=== PATIENT | female | born 1955 | race Caucasian/White ===

== ENCOUNTER → 2016-09-04 | Outpatient (CLI) | payer BC ==
--- NOTE | 2016-09-05 07:51 | BD ---
EXAMINATION TYPE: MG DEXA axial skeleton. DATE OF EXAM: 09/04/2016 COMPARISON: NONE CLINICAL HISTORY: Disorder of bone and cartilage per order. Height: 64 Weight: 127.0 FRAX RISK QUESTIONS: Alcohol (3 or more units per day): no Family History (Parent hip fracture): no Glucocorticoids (More than 3mos): no (Ex: prednisone, prednisolone, methylprednisolone, dexamethasone, and hydrocortisone). History of Fracture in Adulthood: yes Secondary Osteoporosis: 1. Type 1 Diabetes: yes 2. Hyperthyroidism: no 3. Menopause before 45: no 4. Malnutrition: no 5. Chronic liver disease: no Rheumatoid Arthritis: no Current Tobacco Use: no RISK FACTORS HISTORY OF: Hip Fracture (Right/Left): no Spine Fracture: no History of Wrist Fracture: no Surgery to Spine/Hip(right/left)/Wrist (right/left): no Family History of Osteoporosis: no Active: yes Diet low in dairy products/other sources of calcium: no Postmenopausal woman: age 49 Lost more than 2 inches in height since high school: no Frequent falls: no Adrenal Insufficiency: no MEDICATIONS: insulin, metoprolol, Lotensin, vit d Additional History: EXAM MEASUREMENTS: Bone mineral densitometry was performed using the Tipbit System. Bone mineral density as measured about the Lumbar spine is: ----- L1-L4(G/cm2): 1.007 T Score Values are as follows: ----- L2: -1.7 ----- L3: -1.2 ----- L4: -1.4 ----- L1-L4: -1.4 Bone mineral density baseline here Bone mineral density about the R hip (g/cm2): 0.815 Bone mineral density about the L hip (g/cm2): 0.827 T Score values are as follows: -----R Neck: -1.6 -----L Neck: -1.5 -----R Total: -1.0 -----L Total: -0.8 Bone mineral density baseline here IMPRESSION: Osteopenia (T Score between -2.5 and -1 as noted by T score values in the low back and both hips. The re is slightly increased risk of fracture and the patient may be considered for treatment. Re-Screen 2-5 years. NOTE: T-SCORE=SD OF THE YOUNG ADULT MEAN.
== END | disposition home or self-care (01) ==
LOC: RADBDWWP 14:54
PROVIDERS: ATTEND Pediatrics Adolescent Medicine
DX: M85.80 Other specified disorders of bone density and structure, unspecified site (principal)
CPT/HCPCS: 77080

== ENCOUNTER → 2016-09-04 | Outpatient (CLI) | payer BC ==
--- NOTE | 2016-09-06 08:13 | MM ---
Reason for exam: screening (asymptomatic). Last mammogram was performed 3 years and 1 month ago. History: Patient is postmenopausal. Physical Findings: A clinical breast exam by your physician is recommended on an annual basis and results should be correlated with mammographic findings. MG Screening Mammo w CAD Bilateral CC and MLO view(s) were taken. Prior study comparison: August 03, 2013, bilateral MG screening mammo w CAD. November 12, 2010, bilateral digital screening mammo w/CAD. The breast tissue is heterogeneously dense. This may lower the sensitivity of mammography. No significant changes when compared with prior studies. ASSESSMENT: Negative, BI-RAD 1 RECOMMENDATION: Routine screening mammogram of both breasts in 1 year.
== END | disposition home or self-care (01) ==
LOC: RADMAMWWP 14:51
PROVIDERS: ATTEND Family Medicine
DX: Z12.31 Encounter for screening mammogram for malignant neoplasm of breast (principal)

== ENCOUNTER → 2019-12-08 | Outpatient (CLI) | payer BC, MEDICARE ==
--- NOTE | 2019-12-09 10:18 | MM ---
Reason for exam: screening (asymptomatic). Last mammogram was performed 3 years and 3 months ago. History: Patient is postmenopausal. Physical Findings: A clinical breast exam by your physician is recommended on an annual basis and results should be correlated with mammographic findings. MG 3D Screening Mammo W/Cad Bilateral CC and MLO view(s) were taken. Prior study comparison: September 04, 2016, bilateral MG screening mammo w CAD. August 03, 2013, bilateral MG screening mammo w CAD. The breast tissue is heterogeneously dense. This may lower the sensitivity of mammography. Stable benign calcifications. There is no discrete abnormality. No significant changes when compared with prior studies. ASSESSMENT: Benign, BI-RAD 2 RECOMMENDATION: Routine screening mammogram of both breasts in 1 year.
== END | disposition home or self-care (01) ==
LOC: RADMAMWWP 16:09
PROVIDERS: ATTEND Family Medicine
DX: Z12.31 Encounter for screening mammogram for malignant neoplasm of breast (principal)
CPT/HCPCS: 77063; 77067

== ENCOUNTER → 2022-01-16 | Outpatient (CLI) | payer MEDICARE ==
[2022-01-16 10:06] VITALS: BP 140/89; PULSE 78; RESP 17; TEMP 98.3
--- NOTE | 2022-01-16 13:12 | P.HPOB ---
History of Present Illness H&P Date: 01/16/22 Chief Complaint: The patient is here for her routine gynecologic exam and ma mmogram. This is a 66-year-old with an LMP of 2004. The patient is here to establish with this office. It has been about 5 years since her last pelvic exam. She has a history of vaginal prolapse for many years, and she states it has gradually gotten worse. She does notice a small bulge from the vaginal opening. She states it sometimes can feel irritated. She also notices that her urinary stream has been slower than in the past. She denies any postmenopausal bleeding. Review of Systems The patient's weight has been stable over the last year. She denies respiratory, cardiac, or G.I. problems. Past Medical History Past Medical History: Diabetes Mellitus, Hypertension Additional Past Medical History / Comment(s): Type 1 diabetes since age 41. 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 History of Any Multi-Drug Resistant Organisms: None Reported Past Surgical History: No Surgical Hx Reported Additional Past Surgical History / Comment(s): Colonoscopy 2019(next after 10 years). Past Anesthesia/Blood Transfusion Reactions: No Reported Reaction Past Psychological History: No Psychological Hx Reported (She denies any current depression.) Smoking Status: Former smoker Past Alcohol Use History: Occasional (6 per week) Additional Past Alcohol Use History / Comment(s): Quit smoking in 2001. 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 - Past Family History Mother Family Medical History: Cancer Additional Family Medical History / Comment(s): Lung cancer. Maternal aunt had colon cancer and another maternal aunt had breast cancer. Father History Unknown: Yes Family Medical History: Blood Disorder Additional Family Medical History / Comment(s): Alcoholic. of pneumonia. Medications and Allergies Home Medications Medication Instructions Recorded Confirmed Type Benazepril/Hydrochlorothiazide 1 tablet PO DAILY 01/16/22 01/16/22 History [Benazepril-Hctz 20-12.5 mg Tab] Insulin Aspart [NovoLOG] 10 unit INJ DIRECTED 01/16/22 01/16/22 History Insulin Degludec [Tresiba 16 units INJ AC-BRKFST 01/16/22 01/16/22 History Flextouch U-100 Pen] Metoprolol Succinate (ER) [Toprol 25 mg PO DAILY 01/16/22 01/16/22 History XL] amLODIPine [Norvasc] 2.5 mg PO HS 01/16/22 01/16/22 History amLODIPine [Norvasc] 5 mg PO DAILY 01/16/22 01/16/22 History Allergies Allergy/AdvReac Type Severity Reaction Status Date / Time No Known Allergies Allergy Unverified 01/16/22 09:54 Exam Vital Signs Temp Pulse Resp BP Pulse Ox 01/16/22 10:01 98.3 F 78 17 140/89 99 Intake and Output 01/15/22 01/16/22 01/16/22 22:59 06:59 14:59 Other: Weight 57.606 kg Height 5 feet 4 inches, weight 127 pounds, BMI 21.8. This is a well-developed well-nourished white female who is alert and oriented times 3 in no acute distress. HEENT: Within normal limits. NECK: Supple without mass or thyromegaly. CHEST AND LUNGS: Clear to auscultation. HEART: Regular rate and rhythm. BREASTS: Are without mass or discharge. AXILLARY EXAM: Negative for adenopathy. BACK: Negative for CVA tenderness. ABDOMEN: Soft, nontender, without palpable masses. PELVIC EXAM: Normal external genitalia with mild atrophy. Cervix appears normal with mild atrophy. Vagina reveals a grade 2-3 cystocele with mild mucosal thickening over the cystocele. There is no ulceration or gross lesions in the mucosa. The cystocele increases to a grade 3 cystocele with Valsalva. No urinary leakage is demonstrated. There is no unusual discharge. The uterus is midposition, nongravid size and nontender. There is a grade 2 uterine prolapse. There is also a grade 1-2 rectocele. There are no palpable adnexal masses or tenderness. RECTAL EXAM: Rectovaginal exam is negative for mass or tenderness and is negative for occult blood. EXTREMITIES: Nontender. Additional studies: Bone density test done on 09/04/2016 showed osteopenia. Her last mammogram was done on 12/08/2019 and was benign. IMPRESSION: 1. 66-year-old menopausal female with grade 3 cystocele, grade 2 uterine prolapse, and grade 1-2 rectocele. This is mildly symptomatic. 2. History of osteopenia. PLAN: 1. Pap smear was performed. I will also try to obtain her Pap smears from [facility] [employer] from the last 12 years. After reviewing the Pap smears we will determine if Pap smears can be discontinued. 2. Self breast awareness was discussed with the patient. We have also discussed symptoms associated with inflammatory breast cancer. 3. Screening mammogram was done today. 4. We have had a long discussion regarding her vaginal prolapse. We have discussed options including conservative management, pessary use, and surgical correction. She is considering either pessary use or surgical correction. Information on pelvic support problems as well as hysterectomy will be mailed to the patient. She will let me know if she would like to proceed with pessary fitting or surgical correction. If this is the case she will will be referred for this. 5. Osteoporosis prevention was discussed. I have stressed the importance of adequate calcium, vitamin D and regular exercise. Recommended amounts of calcium and vitamin D were also discussed. I have recommended bone density testing since her last one was 5 years ago. The order slip will be mailed to the patient. 6. She has completed her Covid vaccination series and has received 1 booster. 7. She was advised to return in one year for her annual well woman exam and as needed.
--- NOTE | 2022-01-17 07:44 | MM ---
Reason for Exam: Screening (asymptomatic). Last mammogram was performed 2 year(s) and 1 month(s) ago. Patient History: Menarche at age 13. First Full-Term at age 20. Postmenopausal. Patient has history of breast feeding. Maternal aunt had breast cancer, age 78. Risk Values: Gabriela 5 year model risk: 1.4%. NCI Lifetime model risk: 4.8%. Prior Study Comparison: 08/03/2013 Bilateral Screening Mammogram, [facility]. 09/04/2016 Bilateral Screening Mammogram, [facility]. 12/08/2019 Bilateral Screening Mammogram, [facility]. Tissue Density: The breast tissue is heterogeneously dense. This may lower the sensitivity of mammography. Findings: Analyzed By CAD. There are 2 benign-appearing round calcifications in the right breast redemonstrated. Benign-appearing bilateral axillary lymph nodes are again seen. There is no suspicious group of microcalcifications or new suspicious mass in either breast. Overall Assessment: Benign, BI-RAD 2 Management: Screening Mammogram of both breasts in 1 year. A clinical breast exam by your physician is recommended on an annual basis and results should be correlated with mammographic findings. Electronically signed and approved by: Trung Nix M.D.
--- NOTE | 2022-01-17 07:44 | MM ---
Reason for Exam: Screening (asymptomatic). Last mammogram was performed 2 year(s) and 1 month(s) ago. Patient History: Menarche at age 13. First Full-Term at age 20. Postmenopausal. Patient has history of breast feeding. Maternal aunt had breast cancer, age 78. Risk Values: Gabriela 5 year model risk: 1.4%. NCI Lifetime model risk: 4.8%. Prior Study Comparison: 08/03/2013 Bilateral Screening Mammogram, [facility]. 09/04/2016 Bilateral Screening Mammogram, [facility]. 12/08/2019 Bilateral Screening Mammogram, [facility]. Tissue Density: The breast tissue is heterogeneously dense. This may lower the sensitivity of mammography. Findings: Analyzed By CAD. There are 2 benign-appearing round calcifications in the right breast redemonstrated. Benign-appearing bilateral axillary lymph nodes are again seen. There is no suspicious group of microcalcifications or new suspicious mass in either breast. Overall Assessment: Benign, BI-RAD 2 Management: Screening Mammogram of both breasts in 1 year. A clinical breast exam by your physician is recommended on an annual basis and results should be correlated with mammographic findings. Electronically signed and approved by: Trung Nix M.D.
== END | disposition home or self-care (01) ==
LOC: WWCWWP 09:48
PROVIDERS: ATTEND Obstetrics & Gynecology
DX: Z01.419 Encounter for gynecological examination (general) (routine) without abnormal findings (principal); Z12.31 Encounter for screening mammogram for malignant neoplasm of breast
CPT/HCPCS: 77063; 77067

== ENCOUNTER 2023-02-12 11:47 | Emergency (ER) | payer MEDICARE ==
[2023-02-12] MEDS ORDERED: KETOROLAC 15 MG/ML 1 ML VIAL IVP STA (12:39)
[2023-02-12] MEDS ORDERED: ONDANSETRON 4 MG/2 ML VIAL IVP STA (12:39)
[2023-02-12] MEDS ORDERED: MORPHINE SULFATE 2 MG/ML SYRINGE IVP STA (12:41)
--- NOTE | 2023-02-12 12:55 | ED ---
Abdominal Pain HPI - General Chief Complaint: Abdominal Pain Stated Complaint: Abd Pain Time Seen by Provider: 02/12/23 12:32 Source: patient Mode of arrival: ambulatory Limitations: no limitations - History of Present Illness Initial Comments: This 59-year-old female presents with complaint of some left flank and left- sided abdominal pain. She states that it came on at approximately 5:30 this morning. She states that it is fairly severe at times. It is associated with nausea and one episode of vomiting. There's been no fevers or chills, diarrhea, or constipation. She denies any urinary symptomatology. She denies any history of kidney stones. She denies any history of previous similar incidents. She otherwise is fairly healthy other than type 1 diabetes which has been controlled. No other complaints or modifying factors. - Related Data Home Medications Medication Instructions Recorded Confirmed Benazepril/Hydrochlorothiazide 1 tablet PO DAILY 01/16/22 01/16/22 [Benazepril-Hctz 20-12.5 mg Tab] Insulin Aspart [NovoLOG] 10 unit INJ DIRECTED 01/16/22 01/16/22 Insulin Degludec [Tresiba 16 units INJ AC-BRKFST 01/16/22 01/16/22 Flextouch U-100 Pen] Metoprolol Succinate (ER) [Toprol 25 mg PO DAILY 01/16/22 01/16/22 XL] amLODIPine [Norvasc] 2.5 mg PO HS 01/16/22 01/16/22 amLODIPine [Norvasc] 5 mg PO DAILY 01/16/22 01/16/22 Previous Rx's Medication Instructions Recorded Ondansetron Odt [Zofran Odt] 8 mg PO Q8HR PRN #15 tab 02/12/23 traMADol HCl [Ultram] 50 - 100 mg PO Q6H PRN #15 tab 02/12/23 Allergies Allergy/AdvReac Type Severity Reaction Status Date / Time No Known Allergies Allergy Verified 02/12/23 12:08 Review of Systems ROS Statement: Those systems with pertinent positive or pertinent negative responses have been documented in the HPI. ROS Other: All systems not noted in ROS Statement are negative. Past Medical History Past Medical History: Diabetes Mellitus, Hypertension Additional Past Medical History / Comment(s): Type 1 diabetes since age 41. 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 History of Any Multi-Drug Resistant Organisms: None Reported Past Surgical History: No Surgical Hx Reported Additional Past Surgical History / Comment(s): Colonoscopy 2019(next after 10 years). Past Anesthesia/Blood Transfusion Reactions: No Reported Reaction Past Psychological History: No Psychological Hx Reported Smoking Status: Former smoker Past Alcohol Use History: Occasional Past Drug Use History: None Reported - Past Family History Mother Family Medical History: Cancer Additional Family Medical History / Comment(s): Lung cancer. Maternal aunt had colon cancer and another maternal aunt had breast cancer. Father History Unknown: Yes Family Medical History: Blood Disorder Additional Family Medical History / Comment(s): Alcoholic. of pneumonia. General Exam - General Exam Comments Initial Comments: GENERAL: The patient is well nourished and well hydrated. VITAL SIGNS: Heart rate, blood pressure, respiratory rate reviewed as recorded in nurse's notes. EYES: Pupils are round and reactive. Extraocular movements are intact. No conjunctival / lid redness or swelling. ENT: No external evidence of injury, swelling, or ecchymosis. Airway is patent. Throat is clear. NECK: Nontender. No swelling or evidence of injury. No subcutaneous emphysema. Trachea is midline. No thyroid mass. HEART: Regular rate and rhythm. Good peripheral pulses. LUNGS/CHEST: Breath sounds clear and equal bilaterally. No rales, rhonchi, or wheezes. No ecchymosis, subcutaneous emphysema, or tenderness. ABDOMEN: Abdomen soft with mild tenderness noted more into the left mid to upper abdomen and flank region. No palpable masses or organomegaly. No peritoneal signs. No abdominal wall swelling or ecchymosis. EXTREMITIES: No extremity tenderness. Normal muscle tone and function. No thoracolumbar tenderness. NEUROLOGIC: Sensation is grossly intact. Cranial nerve exam reveals face is symmetrical, tongue is midline, speech is clear. SKIN: No abrasions or ecchymosis is noted. No induration or masses noted. PSYCHIATRIC: Alert and oriented. Appropriate behavior and judgment. Limitations: no limitations Course Vital Signs 02/12/23 02/12/23 02/12/23 12:06 13:00 15:42 Temperature 98 F 98.2 F 98.2 F Pulse Rate 70 72 71 Respiratory 18 20 21 Rate Blood Pressure 179/82 177/78 176/79 O2 Sat by Pulse 99 100 99 Oximetry Medical Decision Making - Medical Decision Making The patient was seen and examined. All diagnostics are reviewed. IV is established and she received Zofran and Toradol intravenously. The patient refuses any morphine. She later is given Ultram orally. The urinalysis did not show any evidence of infection or abnormalities. The laboratory just showed a mild hyponatremia and mild hypochloremia. The computed tomography scan of the abdomen and pelvis does show some left nephrolithiasis but there is no evidence of ureterolithiasis. The exact cause of her symptomatology is not definitively determined. The possibility of a small stone or recently passed stone certainly is plausible as her symptoms seem consistent with this. Nevertheless, it is felt as though she is stable for discharge home. Close follow-up with primary care is recommended. Return parameters are discussed. She will be discharged on Ultram as well as Zofran. Was pt. sent in by a medical professional or institution (, LUC, EMBOSSED OR IMPRESSED LETTERING PAINTER, urgent care, hospital, or assisted...) When possible be specific @ -No Did you speak to anyone other than the patient for history (EMS, parent, family, police, friend...)? What history was obtained from this source @ -No Did you review nursing and triage notes (agree or disagree)? Why? @ -I reviewed and agree with nursing and triage notes Were old charts reviewed (outside hosp., previous admission, EMS record, old EKG, old radiological studies, urgent care reports/EKG's, assisted records)? Report findings @ -No old charts were reviewed Differential Diagnosis (chest pain, altered mental status, abdominal pain women, abdominal pain men, vaginal bleeding, weakness, fever, dyspnea, syncope, headache, dizziness, GI bleed, back pain, seizure, CVA, palpatations, mental health, musculoskeletal)? @ -Ureterolithiasis, pyelonephritis, diverticulitis, musculoskeletal pain. EKG interpreted by me (3pts min.). @ -None X-rays interpreted by me (1pt min.). @ -None done CT interpreted by me (1pt min.). @ -As above. U/S interpreted by me (1pt. min.). @ -None done What testing was considered but not performed or refused? (CT, X-rays, U/S, labs)? Why? @ -None What meds were considered but not given or refused? Why? @ -Morphine was considered but patient refused as she's never had morphine before and does not want to try it. Did you discuss the management of the patient with other professionals (professionals i.e. , PA, EMBOSSED OR IMPRESSED LETTERING PAINTER, lab, RT, psych nurse, director of social services, janitorial tech, teacher, tank officer, insurance case manager)? Give summary @ -No Was smoking cessation discussed for >3mins.? @ -No Was critical care preformed (if so, how long)? @ -No Were there social determinants of health that impacted care today? How? (Homelessness, low income, unemployed, alcoholism, drug addiction, transportation, low edu. Level, literacy, decrease access to med. care, [facility], rehab)? @ -No Was there de-escalation of care discussed even if they declined (Discuss DNR or withdrawal of care, Hospice)? DNR status @ -No What co-morbidities impacted this encounter? (DM, HTN, Smoking, COPD, CAD, Cancer, CVA, ARF, Chemo, Hep., AIDS, mental health diagnosis, sleep apnea, morbid obesity)? @ -Diabetes Was patient admitted / discharged? Hospital course, mention meds given and route, prescriptions, significant lab abnormalities, going to OR and other pertinent info. @ -Patient was discharged home Undiagnosed new problem with uncertain prognosis? @ -No Drug Therapy requiring intensive monitoring for toxicity (Heparin, Nitro, Insulin, Cardizem)? @ -No Were any procedures done? @ -No Diagnosis/symptom? @ -Left flank and abdominal pain possibly secondary to recently passed ureterolithiasis. Acute, or Chronic, or Acute on Chronic? @ -Acute Uncomplicated (without systemic symptoms) or Complicated (systemic symptoms)? @ -default Side effects of treatment? @ -No Exacerbation, Progression, or Severe Exacerbation? @ -No Poses a threat to life or bodily function? How? (Chest pain, [place], [place], pneumonia, PE, COPD, DKA, ARF, appy, cholecystitis, CVA, Diverticulitis, Homicidal, Suicidal, threat to staff... and all critical care pts) @ -No - Lab Data Result diagrams: 02/12/23 12:59 02/12/23 12:59 Lab Results 02/12/23 02/12/23 02/12/23 Range/Units 12:36 12:59 12:59 WBC 8.1 (3.8-10.6) k/uL RBC 4.20 (3.80-5.40) m/uL Hgb 13.3 (11.4-16.0) gm/dL Hct 39.3 (34.0-46.0) % MCV 93.6 (80.0-100.0) fL MCH 31.8 (25.0-35.0) pg MCHC 33.9 (31.0-37.0) g/dL RDW 13.3 (11.5-15.5) % Plt Count 292 (150-450) k/uL MPV 7.6 Neutrophils % 87 % Lymphocytes % 9 % Monocytes % 2 % Eosinophils % 1 % Basophils % 0 % Neutrophils # 7.1 (1.3-7.7) k/uL Lymphocytes # 0.7 L (1.0-4.8) k/uL Monocytes # 0.2 (0-1.0) k/uL Eosinophils # 0.0 (0-0.7) k/uL Basophils # 0.0 (0-0.2) k/uL Sodium 132 L (137-145) mmol/L Potassium 3.7 (3.5-5.1) mmol/L Chloride 95 L (98-107) mmol/L Carbon Dioxide 24 (22-30) mmol/L Anion Gap 13 mmol/L BUN 12 (7-17) mg/dL Creatinine 0.37 L (0.52-1.04) mg/dL Est GFR (CKD-EPI)AfAm >90 (>60 ml/min/1.73 sqM) Est GFR (CKD-EPI)NonAf >90 (>60 ml/min/1.73 sqM) Glucose 146 H (74-99) mg/dL Calcium 10.1 (8.4-10.2) mg/dL Total Bilirubin 0.7 (0.2-1.3) mg/dL AST 41 H (14-36) U/L ALT 28 (4-34) U/L Alkaline Phosphatase 74 (38-126) U/L Total Protein 7.9 (6.3-8.2) g/dL Albumin 4.9 (3.5-5.0) g/dL Lipase 48 (23-300) U/L Urine Color Colorless Urine Appearance Clear (Clear) Urine pH 7.0 (5.0-8.0) Ur Specific [place] 1.010 (1.001-1.035) Urine Protein Negative (Negative) Urine Glucose (UA) Negative (Negative) Urine Ketones 1+ H (Negative) Urine Blood Negative (Negative) Urine Nitrite Negative (Negative) Urine Bilirubin Negative (Negative) Urine Urobilinogen <2.0 (<2.0) mg/dL Ur Leukocyte Esterase Negative (Negative) Disposition Clinical Impression: Left flank pain, Nausea and vomiting, Abdominal pain, Hypertension, Hyponatremia Disposition: HOME SELF-CARE Condition: Good Instructions (If sedation given, give patient instructions): Flank Pain (ED) Prescriptions: traMADol HCl [Ultram] 50 - 100 mg PO Q6H PRN #15 tab PRN Reason: Pain Ondansetron Odt [Zofran Odt] 8 mg PO Q8HR PRN #15 tab PRN Reason: Nausea Is patient prescribed a controlled substance at d/c from ED?: Yes When asked, does pt state using other controlled substances?: No If prescribed controlled substance>3 days was MAPS reviewed?: Prescribed <3 Days Referrals: Garrett Mireles MD [Primary Care Provider] - 1-2 days Time of Disposition: 15:14
--- NOTE | 2023-02-12 13:04 | XR ---
EXAMINATION TYPE: XR KUB DATE OF EXAM: 02/12/2023 Comparison: None Clinical History: 67 year-old female abdominal pain Findings: Lung bases are clear. No evidence for free intraperitoneal air. No dilated small bowel or air-fluid levels. Minimal stool in the right side of the abdomen. 5 mm calcification left upper mid abdomen is nonspecific. Impression: No evidence for free air or bowel obstruction. 5 mm calcification on the left is nonspecific, possibl e nonobstructive left renal calculus.
[2023-02-12 13:09] LABS: Appearance,Urine Clear (Clear); Bilirubin,Urine Negative (Negative); Blood,Urine Negative (Negative); Color,Urine Colorless; Glucose,Urine (UA) Negative (Negative); Ketones,Urine 1+ (Negative); Leukocyte Esterase,Urine Negative (Negative); Nitrite,Urine Negative (Negative); Protein,Urine Negative (Negative); Urobilinogen,Urine <2.0 mg/dL (<2.0)
[2023-02-12 13:29] LABS: Basophils % (A) 0 %; Eosinophils % (A) 1 %; HCT 39.3 % (34.0-46.0); HGB 13.3 gm/dL (11.4-16.0); Lymphocytes # (A) 0.7 k/uL (1.0-4.8); Lymphocytes % (A) 9 %; MCH 31.8 pg (25.0-35.0); MCHC 33.9 g/dL (31.0-37.0); MCV 93.6 fL (80.0-100.0); Mean Platelet Volume 7.6; Monocytes # (A) 0.2 k/uL (0-1.0); Monocytes % (A) 2 %; Neutrophils # (A) 7.1 k/uL (1.3-7.7); Neutrophils % (A) 87 %; Platelet Count 292 k/uL (150-450); RDW 13.3 % (11.5-15.5); WBC 8.1 k/uL (3.8-10.6)
[2023-02-12 13:37] LABS: ALT 28 U/L (4-34); African American GFR (CKD) >90 (>60 ml/min/1.73 sqM); Albumin 4.9 g/dL (3.5-5.0); Anion Gap 13 mmol/L; Blood Urea Nitrogen 12 mg/dL (7-17); Calcium 10.1 mg/dL (8.4-10.2); Carbon Dioxide 24 mmol/L (22-30); Chloride 95 mmol/L (98-107); Glucose 146 mg/dL (74-99); Lipase 48 U/L (23-300); Non-African American GFR(CKD) >90 (>60 ml/min/1.73 sqM); Sodium 132 mmol/L (137-145); Total Bilirubin 0.7 mg/dL (0.2-1.3); Total Protein 7.9 g/dL (6.3-8.2)
[2023-02-12 13:40] LABS: AST 41 U/L (14-36); Alkaline Phosphatase 74 U/L (38-126); Potassium 3.7 mmol/L (3.5-5.1)
[2023-02-12 13:48] VITALS: TEMP 98.2
--- NOTE | 2023-02-12 14:51 | CT ---
EXAMINATION TYPE: CT abdomen pelvis wo con DATE OF EXAM: 02/12/2023 COMPARISON: None HISTORY: 67-year-old female Left Flank pain, kidney stone suspected CT DLP: 317.9 mGycm. Automated exposure control for dose reduction was used. TECHNIQUE: Contiguous axial scanning of the abdomen and pelvis without IV contrast. Coronal and sagit blessing reconstructions performed. FINDINGS: LUNG BASES: Streaky atelectasis of the right base. No pleural effusion. LIVER/GB: No significant abnormality is appreciated. PANCREAS: No significant abnormality is seen. SPLEEN: No significant abnormality is seen. ADRENALS: No significant abnormality is seen. KIDNEYS: A couple punctate 2 mm nonobstructive left renal calculi. Otherwise, no significant abnormal ity is seen. BOWEL: Tiny hiatal hernia. No dilated small bowel, free fluid, or free air. Normal appendix. Mild to moderate stool right side of the abdomen. No pericolic inflammatory change. LYMPH NODES: No significant abnormality is seen. OTHER: No significant abnormality is seen. PELVIS: Bladder urine distended. Uterus anteverted. Both ovaries are visualized. No abnormal fluid co llection in the pelvis or pelvic lymphadenopathy. BONES: Osteitis pubis. Mild degenerative disc disease lower thoracic spine. IMPRESSION: 1. A couple punctate 2 mm nonobstructive left renal calculi. No ureteral stone or hydronephrosis see n. 2. Tiny hiatal hernia. 3. No acute inflammatory process identified in the abdomen or pelvis to explain the patient's sympto ms.
[2023-02-12] MEDS ORDERED: traMADol 50 MG TAB PO STA (14:57)
[2023-02-12 16:02] VITALS: BP 176/79; PULSE 71; RESP 21
== END 2023-02-12 15:57 | disposition home or self-care (01) ==
LOC: EC 11:47
DX: R11.2 Nausea with vomiting, unspecified (principal); R10.9 Unspecified abdominal pain; E87.1 Hypo-osmolality and hyponatremia; I10 Essential (primary) hypertension; E11.9 Type 2 diabetes mellitus without complications; Z87.891 Personal history of nicotine dependence; Z79.4 Long term (current) use of insulin; Z79.899 Other long term (current) drug therapy
CPT/HCPCS: 36415; 80053; 83690; 85025; 81003; 74018; 74176; 99285; 96374; J1885

== ENCOUNTER → 2023-12-30 | Outpatient (CLI) | payer MEDICARE ==
[2023-12-30 16:25] VITALS: BP 169/80; PULSE 70; RESP 17; TEMP 98.2
--- NOTE | 2023-12-30 17:20 | P.HPOB ---
History of Present Illness H&P Date: 12/30/23 Chief Complaint: The patient is here for her routine gynecologic exam and ma mmogram. This is a 68-year-old G3, P3 with an LMP of 2005. The patient has known vaginal prolapse for many years and states it has gotten slightly worse from her last exam. She states she can notice a bulge from the vagina and sometimes this rubs against her pad or clothing and can get irritated. She denies any significant urinary leakage with coughing and sneezing and also denies any postmenopausal bleeding. Review of Systems The patient's weight has been stable over the last year. She denies respiratory, cardiac, or G.I. problems. Past Medical History Past Medical History: Diabetes Mellitus, Hypertension Additional Past Medical History / Comment(s): Type 1 diabetes since age 41. PAST [employer] HISTORY: She has no history of STDs. History of Any Multi-Drug Resistant Organisms: None Reported Past Surgical History: No Surgical Hx Reported Additional Past Surgical History / Comment(s): Colonoscopy 2019(next after 10 years). Past Anesthesia/Blood Transfusion Reactions: No Reported Reaction Past Psychological History: No Psychological Hx Reported Smoking Status: Former smoker Past Alcohol Use History: Occasional (About 6 drinks per week.) Additional Past Alcohol Use History / Comment(s): Quit smoking in 2001. 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 - Past Family History Mother Family Medical History: Cancer Additional Family Medical History / Comment(s): Lung cancer. Maternal aunt had colon cancer and another maternal aunt had breast cancer. Father History Unknown: Yes Family Medical History: Blood Disorder Additional Family Medical History / Comment(s): Alcoholic. of pneumonia. Sister(s) Family Medical History: Cancer Additional Family Medical History / Comment(s): Lung cancer. Medications and Allergies Home Medications Medication Instructions Recorded Confirmed Type Benazepril/Hydrochlorothiazide 1 tablet PO DAILY 01/16/22 12/30/23 History [Benazepril-Hctz 20-12.5 mg Tab] Insulin Aspart [NovoLOG] 10 unit INJ DIRECTED 01/16/22 12/30/23 History Insulin Degludec [Tresiba 16 units INJ AC-BRKFST 01/16/22 12/30/23 History Flextouch U-100 Pen] Metoprolol Succinate (ER) [Toprol 25 mg PO DAILY 01/16/22 12/30/23 History XL] amLODIPine [Norvasc] 2.5 mg PO HS 01/16/22 12/30/23 History amLODIPine [Norvasc] 5 mg PO DAILY 01/16/22 12/30/23 History Allergies Allergy/AdvReac Type Severity Reaction Status Date / Time No Known Allergies Allergy Verified 12/30/23 16:20 Exam Vital Signs Temp Pulse Resp BP Pulse Ox 12/30/23 16:20 98.2 F 70 17 169/80 97 Intake and Output 12/30/23 12/30/23 12/30/23 06:59 14:59 22:59 Other: Weight 58.06 kg Height 5 feet 3 inches, weight 128 pounds, BMI 22.7. This is a well-developed well-nourished white female who is alert and oriented times 3 in no acute distress. HEENT: Within normal limits. NECK: Supple without mass or thyromegaly. CHEST AND LUNGS: Clear to auscultation. HEART: Regular rate and rhythm. BREASTS: Are without mass or discharge. AXILLARY EXAM: Negative for adenopathy. BACK: Negative for CVA tenderness. ABDOMEN: Soft, nontender, without palpable masses. PELVIC EXAM: Normal external genitalia with mild atrophy. Cervix and vagina reveal evidence of prolapse. There is a grade 2-3 cystocele at rest and a grade 3 cystocele with Valsalva. The vaginal mucosa overlying the cystocele seems slightly thickened in the area that comes to, or protrudes through the i ntroitus. The mucosa has no ulceration or excoriation. There is a grade 2 uterine prolapse noted. The cervix appears otherwise unremarkable. There is a grade 2 rectocele. There is no unusual discharge. The uterus is midposition, nongravid size and nontender. There are no palpable adnexal masses or tenderness. RECTAL EXAM: Rectovaginal exam is negative for mass or tenderness and is negative for occult blood. EXTREMITIES: Nontender. IMPRESSION: 1. 68-year-old menopausal female with a grade 3-4 cystocele, grade 2 uterine prolapse and grade 2 rectocele. The cystocele on exam was a grade 3 cystocele with Valsalva, but by her description of the bulge, she will be considered a grade 3-4 cystocele. 2. History of osteopenia status post 6 months use of Boniva in the past. 3. History of chronic hypertension with elevated blood pressure today. PLAN: 1. Pap smears have been discontinued. 2. Self breast awareness was discussed with the patient. We have also discussed symptoms associated with inflammatory breast cancer. 3. Screening mammogram was done today. 4. We have discussed her elevated blood pressure. I have recommended that she check her own blood pressures at home on a regular basis and she was instructed to follow-up with her PCP for blood pressure elevations. 5. Osteoporosis prevention was discussed. I have stressed the importance of adequate calcium, vitamin D and regular exercise. Recommended amounts of calcium and vitamin D were also discussed. Bone density test was done today. 6. We have had a long discussion regarding her prolapse issues. We have d iscussed various options including surgical correction, pessary use, and conservative management. She seems to be contemplating surgical correction. We have discussed options of using a local coal chemist as well as seeing Dr. Huber Meyer, the urogynecologist. We have discussed pros and cons of surgery and pessary use. We have also discussed the possible shortening or narrowing of the vagina with surgery. She states she will consider the options and will let me know if she would like a referral for either pessary fitting or surgery. 7. She was advised to return in one year for her annual well woman exam and as needed.
--- NOTE | 2023-12-31 10:15 | BD ---
EXAMINATION TYPE: Axial Bone Density DATE OF EXAM: 12/30/2023 CLINICAL HISTORY: 68 years old Female. ICD-10 CODE: Z780 POST RIANA WITHOUT HRT Height: 63 Weight: 124.5 FRAX RISK QUESTIONS: Alcohol (3 or more units per day): no Family History (Parent hip fracture): no Glucocorticoids (More than 3mos): no (Ex: prednisone, prednisolone, methylprednisolone, dexamethasone, and hydrocortisone). History of Fracture in Adulthood: foot Secondary Osteoporosis: 1. Type 1 Diabetes: yes 2. Hyperthyroidism: no 3. Menopause before 45: no 4. Malnutrition: no 5. Chronic liver disease: no Rheumatoid Arthritis: no Current Tobacco Use: no RISK FACTORS HISTORY OF: Hip Fracture (Right/Left): no Spine Fracture: no History of Wrist Fracture: no Surgery to Spine/Hip(right/left)/Wrist (right/left): no MEDICATIONS: Thyroid Medications: no Osteoporosis Medications: no EXAM MEASUREMENTS: Bone mineral densitometry was performed using the [employer] System. Bone mineral density as measured about the Lumbar spine is: ----- L1-L4(G/cm2): 1.020 T Score Values are as follows: ----- L1: -1.7 ----- L2: -2.1 ----- L3: -1.0 ----- L4: -0.9 ----- L1-L4: -1.3 Z Score Values are as follows: ----- L1: 0.2 ----- L2: -0.1 ----- L3: 0.9 ----- L4: 1.0 ----- L1-L4: 0.6 Bone mineral density has: increased 1.3 % since study of: 09/04/2016 Bone mineral density about the R hip (g/cm2): 0.906 Bone mineral density about the L hip (g/cm2): 0.958 T Score values are as follows: -----R Neck: -1.4 -----L Neck: -1.1 -----R Total: -0.8 -----L Total: -0.4 Z Score values are as follows: -----R Neck: 0.4 -----L Neck: 0.7 -----R Total: 0.8 -----L Total: 1.2 Bone mineral density has: increased 4.7 % since study of: 09/04/2016 FRAX%s: The graph provided illustrates a 14.2% chance for a major osteoporotic fx and a 1.8% chance f or the hips probability for fx in 10 years time. IMPRESSION: Osteopenia (T Score between -2.5 and -1). There is slightly increased risk of fracture and the patient may be considered for treatment. Re-Screen 2-5 years. NOTE: T-SCORE=SD OF THE YOUNG ADULT MEAN. [facility], , 12/31/2023 10:13 AM
--- NOTE | 2023-12-31 12:12 | MM ---
Reason for Exam: Screening (asymptomatic). Last mammogram was performed 2 year(s) and 0 month(s) ago. Patient History: Menarche at age 13. First Full-Term at age 20. Postmenopausal. Patient has history of breast feeding. Maternal aunt had breast cancer, age 78. Risk Values: Gabriela 5 year model risk: 1.4%. NCI Lifetime model risk: 4.3%. Prior Study Comparison: 09/04/2016 Bilateral Screening Mammogram, [facility]. 12/08/2019 Bilateral Screening Mammogram, [facility]. 01/16/2022 Bilateral MG 3D screening mammo w/cad, [facility]. Tissue Density: The breasts are heterogeneously dense, which may obscure small masses. Findings: Analyzed By CAD. There is no suspicious group of microcalcifications or new suspicious mass in either breast. Overall Assessment: Negative, BI-RAD 1 Management: Screening Mammogram of both breasts in 1 year. . Patient should continue monthly self-breast exams. A clinical breast exam by your physician is recommended on an annual basis. This exam should not preclude additional follow-up of suspicious palpable abnormalities. Note on Gabriela scores and lifetime risk: 1. A Gabriela score greater than 3% is considered moderate risk. If this is the case, consider specialist referral to assess eligibility for a risk reducing agent. 2. If overall lifetime risk for the development of breast cancer is 20% or higher, the patient may qualify for future screening with alternating mammogram and breast MRI. [facility], , 12/31/2023 12:09 PM. Electronically signed and approved by: Ramón Ryan M.D. Radiologis
--- NOTE | 2023-12-31 15:02 | P.PN ---
Progress Note - Text Progress Note Date: 12/31/23 OUTPATIENT FOLLOW-UP NOTE TEST(S)/RESULTS: Test results from 12/30/2023 include benign mammogram and bone density test showing osteopenia. There was mild improvement with the bone density compared to the 2017 bone density test. METHOD OF NOTIFICATION: The patient was notified by phone on December 31, 2023. PATIENT COMMENTS: The patient is happy to hear these results. She states she used Boniva for about 6 months prior to 2017 DIAGNOSIS: Benign mammogram and osteopenia. DISCUSSION: I have stressed the importance of continuing to get adequate calcium, vitamin D, and regular exercise. We will plan on repeating the bone density test in about 3 years. PLAN: As above. She was advised to return in one year for her annual well woman exam.
== END | disposition home or self-care (01) ==
LOC: RADMAMWWP 15:01
PROVIDERS: ATTEND Obstetrics & Gynecology
CPT/HCPCS: 77063; 77067; 77080